=== PATIENT | female | born 1950 | race Caucasian/White ===

== ENCOUNTER 2018-06-20 17:50 | Inpatient (IN) | payer OTHER ==
[2018-06-20 18:16] LABS: ADD MAN DIFF? NO
[2018-06-20] MEDS: IV NORMAL SALINE 1000ML BAG 1,000 ML IV (18:16)
[2018-06-20 18:27] LABS: BASO # 0.1 x10^3/uL (0.0-0.2); BASO % 1 % (0-3); EOS # 0.4 x10^3/uL (0.0-0.7); EOS % 5 % (0-3); LYMPH # 2.4 x10^3/uL (1.0-4.8); LYMPH % 31 % (24-48); MEAN CORPUSCULAR HEMOGLOBIN 19 pg (25-35); MEAN CORPUSCULAR HGB CONC 30 g/dL (31-37); MEAN CORPUSCULAR VOLUME 65 fL (79-100); MONO % 12 % (0-9); NEUT % 51 % (31-73); PLATELET COUNT 411 x10^3/uL (140-400); RED BLOOD COUNT 3.38 x10^6/uL (3.50-5.40); RED CELL DISTRIBUTION WIDTH 19.5 % (11.5-14.5); WHITE BLOOD COUNT 7.9 x10^3/uL (4.0-11.0)
[2018-06-20 18:30] LABS: HEMOGLOBIN 6.6 g/dL (12.0-15.5)
[2018-06-20 18:34] LABS: ANION GAP 10 (6-14); BLOOD UREA NITROGEN 17 mg/dL (7-20); BUN/CREATININE RATIO 24 (6-20); CALCIUM 8.6 mg/dL (8.5-10.1); CARBON DIOXIDE 25 mmol/L (21-32); CHLORIDE 107 mmol/L (98-107); CREATININE 0.7 mg/dL (0.6-1.0); GLUCOSE 137 mg/dL (70-99); POTASSIUM 3.8 mmol/L (3.5-5.1); SODIUM 142 mmol/L (136-145)
[2018-06-20 18:37] LABS: ALBUMIN 3.7 g/dL (3.4-5.0); ALBUMIN/GLOBULIN RATIO 1.1 (1.0-1.7); ALK PHOS 74 U/L (46-116); ALT (SGPT) 34 U/L (14-59); AST (SGOT) 31 U/L (15-37); TOTAL BILIRUBIN 0.2 mg/dL (0.2-1.0); TOTAL PROTEIN 7.1 g/dL (6.4-8.2)
[2018-06-20 19:13] LABS: FECAL OB PT NEGATIVE (NEG); NEG OBC FOB NEG; POS OBC FOB POS
[2018-06-20] MEDS ORDERED: ONDANSETRON PF 4 MG/2 ML VIAL. IV (19:45)
[2018-06-20] MEDS ORDERED: fentaNYL PF VIAL 100 MCG/2 ML VIAL IV (19:45)
[2018-06-20 20:10] LABS: RETIC COUNT 2.5 % (0.5-2.5)
[2018-06-20 20:18] LABS: FERRITIN 5 ng/mL (8-252)
[2018-06-20 20:18] LABS: LACTATE DEHYDROGENASE 296 U/L (81-234)
[2018-06-20 20:26] LABS: ANISOCYTOSIS MOD; HYPOCHROMIA MOD; MICROCYTOSIS MOD; PLT ESTIMATE ADEQUATE (ADEQUATE); POIKILOCYTOSIS SLIGHT
[2018-06-20 20:28] LABS: OVALOCYTES FEW
[2018-06-20 22:22] LABS: % SAT IRON 3 % (15-34); IRON,SERUM 14 ug/dL (50-170)
[2018-06-20 22:39] LABS: IMMEDIATE SPIN CROSSMATCH 1 2
[2018-06-21] MEDS: IRON SUCROSE COMPLEX 500 MG in IV NORMAL SALINE 250ML 250 ML IV ×2 (01:06→09:17)
[2018-06-21] MEDS: IV NORMAL SALINE 1000ML BAG 1,000 ML IV ×2 (01:07→09:16)
[2018-06-21 01:52] LABS: ADD MAN DIFF? NO
[2018-06-21 01:58] LABS: BASO # 0.1 x10^3/uL (0.0-0.2); BASO % 1 % (0-3); EOS # 0.3 x10^3/uL (0.0-0.7); EOS % 4 % (0-3); HEMATOCRIT 26.1 % (36.0-47.0); LYMPH % 28 % (24-48); MEAN CORPUSCULAR HEMOGLOBIN 21 pg (25-35); MEAN CORPUSCULAR HGB CONC 31 g/dL (31-37); MONO # 0.9 x10^3/uL (0.0-1.1); MONO % 13 % (0-9); NEUT % 55 % (31-73); PLATELET COUNT 292 x10^3/uL (140-400); RED BLOOD COUNT 3.73 x10^6/uL (3.50-5.40); RED CELL DISTRIBUTION WIDTH 22.4 % (11.5-14.5); WHITE BLOOD COUNT 7.3 x10^3/uL (4.0-11.0)
[2018-06-21 02:05] LABS: INR 1.1 (0.8-1.1); PROTHROMBIN TIME PATIENT 13.2 SEC (11.7-14.0)
[2018-06-21 02:09] LABS: ANION GAP 7 (6-14); BLOOD UREA NITROGEN 16 mg/dL (7-20); CALCIUM 7.7 mg/dL (8.5-10.1); CARBON DIOXIDE 25 mmol/L (21-32); CHLORIDE 110 mmol/L (98-107); CREATININE 0.7 mg/dL (0.6-1.0); GLUCOSE 97 mg/dL (70-99); POTASSIUM 3.9 mmol/L (3.5-5.1); SODIUM 142 mmol/L (136-145)
[2018-06-21 05:01] LABS: MEAN CORPUSCULAR VOLUME 70 fL (79-100)
[2018-06-21 08:13] LABS: VITAMIN-B12 376 pg/mL (247-911)
[2018-06-21 08:13] LABS: FOLATE 18.64 ng/ml (3.2-20.0)
[2018-06-21] MEDS ORDERED: NON FORMULARY ITEM (Alendronate Sodium 1 TAB) PO (09:00)
[2018-06-21] MEDS ORDERED: CYCLOBENZAPRINE 10 MG TABLET. PO (09:00)
[2018-06-21] MEDS ORDERED: ONDANSETRON PF 4 MG/2 ML VIAL. IV (09:00)
[2018-06-21] MEDS: ACETAMINOPHEN 325 MG TABLET. PO (09:18)
[2018-06-21] MEDS: CITALOPRAM 20 MG TABLET. PO (09:18)
[2018-06-21] MEDS: FERROUS SULFATE 325 MG TABLET. PO (09:18)
[2018-06-21] MEDS: CHOLECALCIFEROL (VITAMIN D3) 1,000 UNIT TABLET PO (09:18)
[2018-06-21] MEDS ORDERED: SIMVASTATIN 20 MG TABLET PO (21:00)
[2018-06-21 22:17] LABS: HAPTOGLOBIN 181 mg/dL (34-200)
[2018-06-23 16:21] LABS: GLIA IGA 5 units (0-19); GLIA IGG 1 units (0-19); TRANSGLUTAMINASE IGA AB <2 U/mL (0-3); TRANSGLUTAMINASE IGG AB <2 U/mL (0-5)
== END 2018-06-21 15:35 | disposition home or self-care (01) | DRG 812 ==
LOC: ER 17:50 → 5 SOUTH 19:34
PROC: 30233N1 Transfusion of Nonautologous Red Blood Cells into Peripheral Vein, Percutaneous Approach (ICD-10-PCS; principal; 2018-06-20)
DX: D50.9 Iron deficiency anemia, unspecified (principal); M79.7 Fibromyalgia; K58.0 Irritable bowel syndrome with diarrhea; G89.29 Other chronic pain; E78.00 Pure hypercholesterolemia, unspecified; Z90.49 Acquired absence of other specified parts of digestive tract; Z88.0 Allergy status to penicillin; Z88.2 Allergy status to sulfonamides; Z90.89 Acquired absence of other organs; Z80.0 Family history of malignant neoplasm of digestive organs; Z80.3 Family history of malignant neoplasm of breast; Z82.5 Family history of asthma and other chronic lower respiratory diseases
CPT/HCPCS: 36415; 80048; 80053; 82274; 82607; 82728; 82746; 83010; 83516; 83540; 83550; 83615; 85025; 85045; 85610; 86850; 86900; 86901; 86920; 96360; 96361; 99285; 99285-25; J1756; J7030; J7050; P9016

== ENCOUNTER → 2020-09-17 | Outpatient (CLI) | payer MEDICARE ==
[2018-06-21 15:00] VITALS: BP 117/50
[~2020-09-17] MED LIST: ALEN70TA60 PO; CHOL100013 PO; CITA20TA6 PO; CYCL10TA2 PO; FERR325T14 PO; SIMV20TA18 PO
--- NOTE | 2020-09-17 17:43 | CARD ---
MR#: [id number] Date of Study: 09/17/2020 Ordering Physician: KARLY FARR, Referring Physician: KARLY FARR, Tech: Teressa Brenner APPROVED REPORT EXAM: Two-dimensional and M-mode echocardiogram with Doppler and color Doppler. Other Information Quality : AverageHR: 56bpm INDICATION Murmur RISK FACTORS Hyperlipidemia 2D DIMENSIONS RVDd3.4 (2.9-3.5cm)Left Atrium(2D)2.4 (1.6-4.0cm) IVSd0.9 (0.7-1.1cm)Aortic Root(2D)3.4 (2.0-3.7cm) LVDd4.9 (3.9-5.9cm)LVOT Diameter2.1 (1.8-2.4cm) PWd0.9 (0.7-1.1cm)LVDs2.9 (2.5-4.0cm) FS (%) 40.4 %SV78.6 ml LVEF(%)70.9 (>50%) Aortic Valve AoV Peak Leonides.151.6cm/sAoV VTI32.5cm AO Peak GR.9.2mmHgLVOT Peak Leonides.82.3cm/s LVOT VTI 17.08cmAO Mean GR.5mmHg BIANKA (VMAX)1.60bd8TKH (VTI)1.75cm2 Mitral Valve MV E Hbfvlpoi49.3cm/sMV DECEL HQIS537gm MV A Fnvwsdqp30.5cm/sMV MLU24uj E/A Ratio1.0MVA (PHT)4.26cm2 TDI E/Lateral E'7.1E/Medial E'9.4 Pulmonary Valve PV Peak Ljprvixt88.0cm/sPV Peak Grad.2mmHg Tricuspid Valve TR P. Ekccyxlj347eg/sRAP VHXWYYFB8iaKh TR Peak Gr.02dpPsUBST72dzWy Pulmonary Vein S1 Kwllqqbf72.1cm/sD2 Rttsqzqn15.4cm/s PVa vxbqyztd585qthq LEFT VENTRICLE The left ventricle is normal size. There is normal left ventricular wall thickness. The left ventricu lar systolic function is normal and the ejection fraction is within normal range. The Ejection Fracti on is 50-55%. There is normal LV segmental wall motion. Transmitral Doppler flow pattern is Grade II- pseudonormal filling dynamics. RIGHT VENTRICLE The right ventricle is mildly to moderately dilated. The right ventricle is mildly hypertrophied. The right ventricular systolic function is normal. ATRIA The left atrium is moderately dilated. The right atrium is mildly dilated. The interatrial septum is intact with no evidence for an atrial septal defect or patent foramen ovale as noted on 2-D or Dopple r imaging. AORTIC VALVE The aortic valve is thickened but opens well. Doppler and Color Flow revealed trace aortic regurgitat ion. There is no significant aortic valvular stenosis. Calculated aortic valve area is 1.67 cm2 with maximum pressure gradient of 11 mmHg and mean pressure gradient of 5 mmHg. MITRAL VALVE The mitral valve is normal in structure and function. There is no evidence of mitral valve prolapse. There is no mitral valve stenosis. Doppler and Color-flow revealed trace mitral regurgitation. TRICUSPID VALVE The tricuspid valve is normal in structure and function. Doppler and Color Flow revealed mild to mode rate tricuspid regurgitation with an estimated PAP of 34 mmHg. There is no tricuspid valve stenosis. PULMONIC VALVE The pulmonic valve is not well visualized. Doppler and Color Flow revealed trace pulmonic valvular re gurgitation. There is no pulmonic valvular stenosis. GREAT VESSELS The aortic root is normal in size. The IVC is normal in size and collapses >50% with inspiration. PERICARDIAL EFFUSION There is no evidence of significant pericardial effusion. Critical Notification Critical Value: No <Conclusion> The left ventricular systolic function is normal and the ejection fraction is within normal range. Th e Ejection Fraction is 50-55%. There is normal LV segmental wall motion. The right ventricle is mildly to moderately dilated. Doppler and Color Flow revealed mild to moderate tricuspid regurgitation with an estimated PAP of 34 mmHg. Signed by : Austin Nevarez, Electronically Approved : 09/17/2020 17:42:17
== END ==
LOC: ECHO 10:33
PROVIDERS: ATTEND Internal Medicine Cardiovascular Disease
DX: I07.1 Rheumatic tricuspid insufficiency (principal)
CPT/HCPCS: 93306

== ENCOUNTER → 2021-09-23 | Outpatient (CLI) | payer MEDICARE ==
[2018-06-21 15:00] VITALS: BP 117/50
[~2021-09-23] MED LIST changes: -ALEN70TA60 PO; +ALEN70TA71 PO; +ASPI-630 PO; +CYCL10TA19 PO; -CYCL10TA2 PO; +OXYB5TAB10 PO
--- NOTE | 2021-09-23 12:51 | PDOC1 ---
INITIAL PAIN CONSULT DATE OF SERVICE: DOS: DATE: 09/23/21 TIME: 12:45 CHIEF COMPLAINT: Chief Complaint: Low back and left lower extremity pain HISTORY OF PRESENT ILLNESS: 71-year-old female presents with history of pain low back left lower extremity for about 1 year after she stepped sideways and felt a movement in her left hip which popped and has had pain in the low back since that time radiating now into the left lower extremity into the posterior gluteus posterior thigh and occasionally in the posterior calf mostly in the hip and thigh patient report is worse with walking standing changing positions better with sitting or laying down generally wakes her from sleep though about once or twice a night especially she is laying on her left side. Patient reports is not effective bowel bladder control but affect her ability to walk although does not use any assistive devices. Patient reports the pain is across the low back in the left distribution into the left leg patient describes as constant throbbing shooting sometimes cramping aching in the back itself patient has had chiropractic treatment which is helpful as well as exercise which she is currently doing daily and continues to do this as well. Patient is taking Tylenol which does decrease the pain by about 20% or so. Patient did have a MRI scan of the lumbar spine showing bilateral spondylosis at L5 with grade 2 anterolisthesis at L5-S1 with disc desiccation at L3 445 and L5-S1 with disc unroofing at L5-S1 with mild right and moderate left foraminal neural stenosis. Patient reports no loss of motor function but significant fatigability of the left lower extremity, no bowel or bladder incontinence. PAST MEDICAL HISTORY: PMH: Cataracts, otherwise patient has been in very good health. PREVIOUS SURGERIES: Past Surgical Hx: Cataract extraction 2019 CURRENT MEDICATIONS: Current Meds: Active Scripts Medications Dose Route/Sig Max Daily Dose Days Date Category Aspirin 81 Mg Tab.chew 1 Tab PO DAILY 09/23/21 Reported Oxybutynin Chloride 5 Mg Tablet 1 Tab PO BID 09/23/21 Reported Simvastatin 20 Mg Tablet 1 Tab PO QHS 06/21/18 Reported Vitamin D (Cholecalciferol (Vitamin D3)) 1,000 Unit Capsule 1,000 Unit PO DAILY 06/21/18 Reported ALLERGIES; Allergies: Coded Allergies: Penicillins (Verified Allergy, Intermediate, HIVES, 06/20/18) Sulfa (Sulfonamide Antibiotics) (Verified Allergy, Intermediate, HIVES, ) FAMILY HISTORY: Family Hx: Heart disease in patient's mother, lung disease in patient's father SOCIAL HISTORY: Social Hx: Patient is nondrug alcohol does not smoke says any illegal illicit recreational drugs is single lives locally in [facility] and is currently retired. REVIEW OF SYSTEMS: ROS: Positive for those items mentioned in history of present illness, all systems are reviewed, otherwise negative ,and are complete full and well-documented on patient's chart. PHYSICAL EXAM: VS: Blood pressure is 121/71 pulse 70 respirations 18 temperature 98.3 F height 5 feet 5 inches weight is 147 pounds PE: PHYSICAL EXAMINATION: GENERAL: The patient is awake, alert, oriented, appropriate, very pleasant in demeanor HEENT: Shows normocephalic, atraumatic. Extraocular movements are intact and symmetrical. Oral cavity: Mucous membranes moist and pink. NECK: Shows anterior throat supple without palpable lymphadenopathy noted. Swallow reflex symmetrical. CHEST: Shows normal on inspection. Breath sounds are clear bilaterally, distant but no rales rhonchi wheezes auscultated. HEART: Shows S1, S2 clear. No murmurs auscultated. ABDOMEN: Soft, nontender, nondistended. No palpable organomegaly is noted. No rebound or guarding demonstrated. BACK: Shows spine grossly in the midline. Normal-appearing cervical lordotic curvature. There is wildly increased thoracic kyphosis, some flattening of the lumbar lordotic curvature. Lumbar paraspinous muscles show symmetrical on inspection, on palpation shows some moderate tenderness diffusely throughout the upper, middle and lower distribution of the paraspinous muscles bilaterally and also into the lower thoracic paraspinous musculature, firm and tender, but without specific trigger points, without radiation of pain. The patient has good rotational motion of the lumbar spine, both laterally as well as extension and flexion without significant difficulty. No tenderness over the spinous processes, sacrum or sacroiliac regions. EXTREMITIES: Lower extremities show deep tendon reflexes 2+ in the patellar and tendo calcaneus tendons. Motor exam is 5 on a scale of 5 with right dorsiflexion, extension, quadriceps and hamstring flexion and []/5 on the left. Peripheral pulses are 1+ posterior tibial. No peripheral edema is noted bilaterally. Lower extremities are warm and dry to touch, equal in color and appearance. Straight leg raise noted to be positive on the left at approximately 45 degrees, decreased with knee flexion, right side is negative. Gaenslen's and Neto's maneuvers are negative bilaterally. The patient is able to stand, stand on her toes that significant difficulty and no loss of balance, patient is walking with a slight favoring gait does appear to favor the left lower extremity mildly but not use any assistive devices to ambulate such as canes or walkers. SKIN: Shows warm and dry, good turgor. No edema. No sores, rashes or bruising throughout. IMPRESSION: Impression: 71-year-old female with approximate 1 year history low back left lower extremity pain in a radicular fashion following an L5-S1 dermatomal distribution. MRI scan lumbar spine as noted History of cataracts Plan: Options were discussed with patient occluding serve medical management continued physical therapies and interventional techniques. Patient has done physical therapy chiropractic treatment is currently doing exercise on her own, she would like to pursue the ventral techniques. We discussed a lumbar epidural steroid injection description as well as anatomical models to describe the procedure. Patient will wait for preauthorization with insurance provider, once obtained we will have her return for a translaminar approach L5-S1 level lumbar epidural steroid injection at that time with fluoroscopic guidance. In the meantime, patient continue with stretching strength exercises on her own as well as oral analgesics as currently. AUNDREA LUCIO MD Sep 23, 2021 12:50
== END | disposition home or self-care (01) ==
LOC: PNCL 11:03
PROVIDERS: ATTEND Anesthesiology
DX: M79.605 Pain in left leg (principal); M54.50 Low back pain, unspecified; E78.00 Pure hypercholesterolemia, unspecified; E11.9 Type 2 diabetes mellitus without complications; Z79.82 Long term (current) use of aspirin; Z79.899 Other long term (current) drug therapy; Z98.890 Other specified postprocedural states; Z88.0 Allergy status to penicillin; Z88.2 Allergy status to sulfonamides
CPT/HCPCS: G0463

== ENCOUNTER → 2021-10-06 | Outpatient (CLI) | payer MEDICARE ==
[2018-06-21 15:00] VITALS: BP 117/50
[~2021-10-06] MED LIST changes: +IOHEXOL 180 MG/ML 10 ML VIAL. ONE; +methylPREDNISolone ACETATE 40 MG/ML VIAL. ONE; +methylPREDNISolone ACETATE 80 MG/ML VIAL. ONE
--- NOTE | 2021-10-06 10:50 | PDOC ---
Progress Note - Pain Clinic Date of Service: DOS: DATE: 10/06/21 TIME: 10:47 Diagnosis: Dx: Lumbar radiculopathy with lumbar degenerative disease and lumbar spinal stenosis History or Present Illness: HPI: 71-year-old female returns for follow-up status post initial evaluation with complaints of low back and left lower extremity pain posterior gluteus posterior thigh posterior calf and across the low back patient reports is now also on the right side but only intermittently patient reports initially was only on the left but now new finding of right-sided pain with some walking standing especially getting up from a chair patient reports it is better with sitting or laying down the Medrol pack that we had prescribed for her last time helped significantly about 90% but only lasted about 5 days and the pain began to return fairly quickly patient rates her pain now as an 8 on scale 10 is worse over the past week 5 on average 3 its least is a 5 today patient scribes aching and dull can be constant with activity and again new pain on the right side with getting up from a chair. Patient reports no bowel or bladder incontinence and no loss of motor function. Patient complains of significant fatigability still in the left lower extremity. Physical Exam: VS: Blood pressure is 124/64 pulse is 50 respirations 18 temperature 99.2 F height is 5 feet 5 inches weight 146 pounds PE: PHYSICAL EXAMINATION: GENERAL: The patient is awake, alert, oriented, appropriate, very pleasant in demeanor HEENT: Shows normocephalic, atraumatic. Extraocular movements are intact and symmetrical. Oral cavity: Mucous membranes moist and pink. NECK: Shows anterior throat supple without palpable lymphadenopathy noted. Swallow reflex is symmetrical. CHEST: Shows normal on inspection. Breath sounds are clear bilaterally, no rales or rhonchi auscultated. HEART: Shows S1, S2 clear. No murmurs auscultated. ABDOMEN: Soft, nontender, nondistended. No palpable organomegaly is noted. BACK: Shows spine grossly in the midline. Normal-appearing cervical lordotic curvature. There is slightly increased thoracic kyphosis, some minor flattening of the lumbar lordotic curvature. Lumbar paraspinous muscles show symmetrical on inspection, on palpation shows some moderate tenderness diffusely throughout the upper, middle and lower distribution of the paraspinous muscles, but without specific trigger points, without radiation of pain. The patient has good rotational motion of the lumbar spine, both laterally as well as extension and flexion without significant difficulty. EXTREMITIES: Lower extremities show deep tendon reflexes 2+ in the patellar and tendo calcaneus tendons. Motor exam is 5 on a scale of 5 with right dorsiflexion, extension, quadriceps and hamstring flexion and 4/5 on the left. Peripheral pulses are 1+ posterior tibial. No peripheral edema is noted bilaterally. Lower extremities are warm and dry to touch, equal in color and appearance. SKIN: Shows warm and dry, good turgor. No edema. No sores, rashes or bruising throughout. Procedure: Procedure: Options were discussed with the patient. Patient's old chart was reviewed as her current medication regimen updated current review of systems updated today as well. We will proceed with a lumbar epidural steroid injection today with fluoroscopic guidance. Risks were discussed including but not limited to: Bleeding, infection, possibility of epidural hematoma and subsequent neurological compromise, dural puncture, headaches, spinal cord and/or nerve damage, side effects of steroid medication, and poor results regarding pain control. Patient understands and wished to proceed. Patient will return to the clinic in approximate 2 weeks for follow-up, was counseled return appointment, activity level, and side effects beware of. Medication Injected: Med Injected: Procedure is lumbar epidural steroid injection under local anesthetic using sterile prep and drape at the L5-S1 level using C-arm fluoroscopic guidance in both AP and lateral views medications injected is 120 mg Depo-Medrol +10mL preservative-free normal saline and 2 mL contrast- condition at discharge is stable patient tolerated procedure well had no complications. Condition at Discharge: Condition at Discharge: Condition at discharge stable, patient tolerated procedure well and had no complications. AUNDREA LUCIO MD Oct 06, 2021 10:50
--- NOTE | 2021-10-06 10:50 | PDOC4 ---
Procedure Note: ICD 10 Code: ICD 10 Code: M54.17 M4 8.07 M51.87 Procedure Note: Patient was consented for lumbar epidural steroid injection with fluoroscopic guidance. Risks were discussed including but not limited to: Bleeding, infection, possibility of epidural hematoma and subsequent neurological compromise, dural puncture, headaches, spinal cord and/or nerve damage, side effects of steroid medication, and poor results regarding pain control. Patient understands and wished to proceed. Procedure is lumbar epidural steroid injection under local anesthetic using nic rile prep and drape at the L5-S1 level using C-arm fluoroscopic guidance in both AP and lateral views medications injected is 120 mg Depo-Medrol +10mL preservative-free normal saline and 2 mL contrast- condition at discharge is stable patient tolerated procedure well had no complications. AUNDREA LUCIO MD Oct 06, 2021 10:50
== END | disposition home or self-care (01) ==
LOC: PNCL 10:01
PROVIDERS: ATTEND Anesthesiology
DX: M51.16 Intervertebral disc disorders with radiculopathy, lumbar region (principal); M48.061 Spinal stenosis, lumbar region without neurogenic claudication; E78.00 Pure hypercholesterolemia, unspecified; Z79.82 Long term (current) use of aspirin; Z79.899 Other long term (current) drug therapy; Z88.0 Allergy status to penicillin; Z88.2 Allergy status to sulfonamides
CPT/HCPCS: 62323; J1030; J1040; Q9965

== ENCOUNTER → 2021-10-20 | Outpatient (CLI) | payer MEDICARE ==
[2018-06-21 15:00] VITALS: BP 117/50
[~2021-10-20] MED LIST changes: -IOHEXOL 180 MG/ML 10 ML VIAL. ONE; -methylPREDNISolone ACETATE 40 MG/ML VIAL. ONE; -methylPREDNISolone ACETATE 80 MG/ML VIAL. ONE
--- NOTE | 2021-10-20 11:21 | PDOC ---
Progress Note - Pain Clinic Date of Service: DOS: DATE: 10/20/21 TIME: 11:17 Diagnosis: Dx: Lumbar radiculopathy with lumbar degenerative disease and lumbar spinal stenosis History or Present Illness: HPI: 71-year-old female returns for follow-up status post lumbar epidural steroid injection. Patient reports about 75% improvement and is currently still helping patient reports doing much better she is increase activity distance walking doing household activities travel with greater ease and comfort sleeping much better at night does not awaken her from sleep she is very pleased with her progress. Patient reports still some pain in the low back into the left lower extremity in the posterior gluteus posterior thigh posterior calf but only very minimal patient reports is doing much better she is very pleased rates her pain is a 7 on scale 10 is worse over the past week for an average 1 its least and is a 4 today. She reports her back "feels tired" described as aching and dull in the back on and off in intensity and shooting in the leg but again much improved and she is doing quite a bit more activity with greater ease and comfort no new bowel or bladder incontinence. Patient continues with stretching strength exercises daily and also daily walking at least up to 1/4 mile to a half a mile if the weather permits. Patient is occasionally taking Tylenol but does not need much of it since her last injection. Physical Exam: VS: Blood pressure is 131/75 pulse 60 respirations 18 temperature 98.1 F weight is 147 pounds PE: PHYSICAL EXAMINATION: GENERAL: The patient is awake, alert, oriented, appropriate, very pleasant and demeanor HEENT: Shows normocephalic, atraumatic. Extraocular movements are intact and symmetrical. Oral cavity: Mucous membranes moist and pink. NECK: Shows anterior throat supple without palpable lymphadenopathy noted. Swallow reflex symmetrical. CHEST: Shows normal on inspection. Breath sounds are clear bilaterally, no rales or rhonchi. HEART: Shows S1, S2 clear. No murmurs auscultated. ABDOMEN: Soft, nontender, nondistended. No palpable organomegaly is noted. BACK: Shows spine grossly in the midline. Normal-appearing cervical lordotic curvature. There is slightly increased thoracic kyphosis, some minor flattening of the lumbar lordotic curvature. Lumbar paraspinous muscles show symmetrical on inspection, on palpation shows some moderate tenderness diffusely throughout the upper, middle and lower distribution of the paraspinous muscles, but without specific trigger points, without radiation of pain. The patient has good rotational motion of the lumbar spine, both laterally as well as extension and flexion without significant difficulty. EXTREMITIES: Lower extremities show deep tendon reflexes 2+ in the patellar and tendo calcaneus tendons. Motor exam is 5 on a scale of 5 with right dorsiflexion, extension, quadriceps and hamstring flexion and 4/5 on the left. Peripheral pulses are 1+ posterior tibial. No peripheral edema is noted bilaterally. Lower extremities are warm and dry to touch, equal in color and appearance. SKIN: Shows warm and dry, good turgor. No edema. No sores, rashes or bruising throughout. Procedure: Procedure: Options were discussed with patient. Patient chart reviews her current medication regimen updated current review of systems updated today as well. We will have patient preauthorize for additional lumbar epidural steroid injection she still has clinical radiculopathy in an L5-S1 dermatome distribution on the left although significantly improved with 75% improvement after the last injection. We will continue with stretching strength exercises at home as well as oral analgesics as currently. Once approved we will have patient return for translaminar approach L5-S1 level lumbar epidural steroid injection with fluoroscopic guidance. Medication Injected: Med Injected: None Condition at Discharge: Condition at Discharge: Condition at discharge is stable. AUNDREA LUCIO MD Oct 20, 2021 11:21
== END | disposition home or self-care (01) ==
LOC: PNCL 10:30
PROVIDERS: ATTEND Anesthesiology
DX: M51.16 Intervertebral disc disorders with radiculopathy, lumbar region (principal); M48.061 Spinal stenosis, lumbar region without neurogenic claudication; E78.00 Pure hypercholesterolemia, unspecified; Z79.899 Other long term (current) drug therapy; Z98.890 Other specified postprocedural states; Z79.82 Long term (current) use of aspirin; Z88.0 Allergy status to penicillin; Z88.2 Allergy status to sulfonamides
CPT/HCPCS: 62323; 99212; G0463

== ENCOUNTER → 2021-11-11 | Outpatient (CLI) | payer MEDICARE ==
[2018-06-21 15:00] VITALS: BP 117/50
[~2021-11-11] MED LIST changes: +IOHEXOL 180 MG/ML 10 ML VIAL. ONE; +methylPREDNISolone ACETATE 40 MG/ML VIAL. ONE; +methylPREDNISolone ACETATE 80 MG/ML VIAL. ONE
--- NOTE | 2021-11-11 11:17 | PDOC ---
Progress Note - Pain Clinic Date of Service: DOS: DATE: 11/11/21 TIME: 11:13 Diagnosis: Dx: Lumbar radiculopathy with lumbar degenerative disease and lumbar spinal stenosis History or Present Illness: HPI: 71-year-old female returns for follow-up status post lumbar epidural steroid injection x1 patient reports she did very well about 35% improvement but the pain returning in the low back left lower extremity posterior gluteus posterior thigh posterior calf at times worse in the back and thigh however also has pain now on the right side which is new for her as she is almost always had occasionally on the right side now in the left side to some extent as well but not traveling as far into the lower extremity and hip as the left side as patient reports this is come up just over the past week or so not the result of any specific injury or accident that she is aware patient rates as a 10 on scale 10 is worst 8 on average 3 to [place] is a 5 today patient reports aching and dull burning and constant in the low back and now in both lower extremities. Patient reports while it is better it is still significant in the right side now is more noticeable since the last week patient reports is better with sitting or laying down generally does not awaken her from sleep at night patient reports when she is up on her feet walking she must sit for about 15 to 20 minutes to get the pain to resolve before she can get up and get going once again. Patient reports no motor deficits but significant fatigability of the lower extremities. Physical Exam: VS: Blood pressure is 133/55 pulse 68 respirations 18 temperature 99.1 F height 5 feet 5 inches weight 148 pounds PE: PHYSICAL EXAMINATION: GENERAL: The patient is awake, alert, oriented, appropriate, very pleasant in demeanor HEENT: Shows normocephalic, atraumatic. Extraocular movements are intact and symmetrical. Oral cavity: Mucous membranes moist and pink. NECK: Shows anterior throat supple without palpable lymphadenopathy noted. Swallow reflex symmetrical. CHEST: Shows normal on inspection. Breath sounds are clear bilaterally. HEART: Shows S1, S2 clear. No murmurs auscultated. ABDOMEN: Soft, nontender, nondistended. No palpable organomegaly is noted. BACK: Shows spine grossly in the midline. Normal-appearing cervical lordotic curvature. There is slightly increased thoracic kyphosis, some minor flattening of the lumbar lordotic curvature. Lumbar paraspinous muscles show symmetrical on inspection, on palpation shows some moderate tenderness diffusely throughout the upper, middle and lower distribution of the paraspinous muscles without specific trigger points, without radiation of pain. The patient has good rotational motion of the lumbar spine, both laterally as well as extension and flexion without significant difficulty. EXTREMITIES: Lower extremities show deep tendon reflexes 2+ in the patellar and tendo calcaneus tendons. Motor exam is 5 on a scale of 5 with right dorsiflexion, extension, quadriceps and hamstring flexion and 4/5 on the left. Peripheral pulses are 1+ posterior tibial. No peripheral edema is noted bilaterally. Lower extremities are warm and dry. SKIN: Shows warm and dry, good turgor. No edema. No sores, rashes or bruising throughout. Procedure: Procedure: Options were discussed with the patient. Patient's old chart was reviewed as her current medication regimen updated current review of systems updated today as well. We will proceed with a lumbar epidural steroid injection today with fluoroscopic guidance. Risks were discussed including but not limited to: Bleeding, infection, possibility of epidural hematoma and subsequent neurological compromise, dural puncture, headaches, spinal cord and/or nerve damage, side effects of steroid medication, and poor results regarding pain control. Patient understands and wished to proceed. Patient will return [facility] in approximate 2 weeks for follow-up, was counseled as to return appointment, activity level, and side effect to be aware of. Medication Injected: Med Injected: Procedure is lumbar epidural steroid injection under local anesthetic using sterile prep and drape at the L5-S1 level using C-arm fluoroscopic guidance in both AP and lateral views medications injected is 120 mg Depo-Medrol +10mL preservative-free normal saline and 2 mL contrast- condition at discharge is stable patient tolerated procedure well had no complications. Condition at Discharge: Condition at Discharge: Condition at discharge is stable, patient tolerated the procedure well and had no complications. AUNDREA LUCIO MD Nov 11, 2021 11:17
--- NOTE | 2021-11-11 11:17 | PDOC4 ---
Procedure Note: ICD 10 Code: ICD 10 Code: M54.17 M51.87 M4 8.07 Procedure Note: Patient was consented for lumbar epidural steroid injection fluoroscopic guidance. Risks were discussed including but not limited to: Bleeding, infection, possibility of epidural hematoma and subsequent neurological compromise, dural puncture, headaches, spinal cord and/or nerve damage, side effects of steroid medication, and poor results regarding pain control. Patient understands and wished to proceed. Procedure is lumbar epidural steroid injection under local anesthetic using sterile prep and drape at the L5-S1 level using C-arm fluoroscopic guidance in both AP and lateral views medications injected is 120 mg Depo-Medrol +10mL preservative-free normal saline and 2 mL contrast- condition at discharge is stable patient tolerated procedure well had no complications. AUNDREA LUCIO MD Nov 11, 2021 11:17
== END | disposition home or self-care (01) ==
LOC: PNCL 10:23
PROVIDERS: ATTEND Anesthesiology
DX: M51.16 Intervertebral disc disorders with radiculopathy, lumbar region (principal); M48.061 Spinal stenosis, lumbar region without neurogenic claudication; E78.00 Pure hypercholesterolemia, unspecified; Z79.82 Long term (current) use of aspirin; Z79.899 Other long term (current) drug therapy; Z98.890 Other specified postprocedural states; Z88.0 Allergy status to penicillin; Z88.2 Allergy status to sulfonamides
CPT/HCPCS: 62323; J1030; J1040; Q9965

== ENCOUNTER → 2021-12-22 | Outpatient (CLI) | payer MEDICARE ==
[2018-06-21 15:00] VITALS: BP 117/50
[~2021-12-22] MED LIST changes: -IOHEXOL 180 MG/ML 10 ML VIAL. ONE; -methylPREDNISolone ACETATE 40 MG/ML VIAL. ONE; -methylPREDNISolone ACETATE 80 MG/ML VIAL. ONE
--- NOTE | 2021-12-22 11:57 | PDOC ---
Progress Note - Pain Clinic Date of Service: DOS: DATE: 12/22/21 TIME: 11:52 Diagnosis: Dx: Lumbar radiculopathy with lumbar degenerative disc disease and lumbar spinal stenosis History or Present Illness: HPI: 71-year-old female returns status post lumbar epidural steroid injection November 11, 2021 patient reports 100% improvement for the first 3 weeks pain to begin to come back over the past week or so and low back and the left lower extremity. Patient reports initially is doing much better distance walking much greater duration and comfort with exercise standing walking she been walking her dog 4 times a day with good comfort until the last week or so patient reports he is doing household activities travel with greater ease and comfort sleeping better at night currently is not awaken her from sleep patient does report the pain is beginning to return however it is noticeable in the low back left lower extremity posterior gluteus posterior thigh and calf with extended walking but only for greater than about 20 minutes patient reports is a 6 on a scale of 10 at its worst over the past week for an average steroids least prior to that though is 1 or 2 it is worse now jumped up to a 6 at its worst in the low back and the left leg patient report is aching and dull cramping at times on and off in intensity again better with sitting rest. Patient reports that she is not been using any oral analgesics since her last injection and again her activity level is increased significantly especially with extended periods of walking. Patient reports no bowel or bladder incontinence. Physical Exam: VS: Blood pressure is 139/79 pulse 55 respirations 18 temperature 98.2 F height 5 feet 5 inches weight is 150 pounds PE: PHYSICAL EXAMINATION: GENERAL: The patient is awake, alert, oriented, appropriate, very pleasant in demeanor HEENT: Shows normocephalic, and atraumatic. Extraocular movements are intact and symmetrical. Oral cavity: Mucous membranes moist and pink. NECK: Shows anterior throat supple without palpable lymphadenopathy noted. Swallow reflex symmetrical. CHEST: Shows normal on inspection. Breath sounds are clear bilaterally, distant but no rales or rhonchi auscultated. HEART: Shows S1, S2 clear. No murmurs auscultated. ABDOMEN: Soft, nontender, nondistended. No palpable organomegaly is noted. No rebound or guarding demonstrated. BACK: Shows spine grossly in the midline. Normal-appearing cervical lordotic curvature. There is mildly increased thoracic kyphosis, some flattening of the lumbar lordotic curvature. Lumbar paraspinous muscles show symmetrical on inspection, with palpation shows some moderate tenderness diffusely throughout the upper, middle and lower distribution of the paraspinous muscles without specific trigger points, without radiation of pain. The patient has good rotational motion of the lumbar spine, both laterally as well as extension and flexion without significant difficulty. EXTREMITIES: Lower extremities show deep tendon reflexes 2+ in the patellar and tendo calcaneus tendons. Motor exam is 5 on a scale of 5 with right dorsiflexion, extension, quadriceps and hamstring flexion and 4/5 on the left. Peripheral pulses are 1+ posterior tibial. No peripheral edema is noted bilaterally. Lower extremities are warm and dry to touch, equal in color and appearance. Straight leg raise is mildly positive on the left only at 45 degr ees but relieved with knee flexion, right side is negative. SKIN: Shows warm and dry, good turgor. No edema. No sores, rashes or bruising throughout. Procedure: Procedure: Options were discussed with the patient. Patient's old chart was reviewed as her current medication regimen updated current review of systems updated today as well. We will preauthorize patient for lumbar epidural steroid injection she did very well after last injection with near undersign improvement for over a month with the pain returning now in a radicular fashion in L5-S1 dermatomal distribution in the left lower extremity. Once approved, patient will return for translaminar approach L5-S1 lumbar epidural steroid injection with fluoroscopic guidance. In the meantime, patient will continue with stretching strengthening exercises walking daily as tolerated as well as oral analgesics if necessary. Medication Injected: Med Injected: None Condition at Discharge: Condition at Discharge: Condition at discharge is stable. AUNDREA LUCIO MD Dec 22, 2021 11:57
== END | disposition home or self-care (01) ==
LOC: PNCL 11:05
PROVIDERS: ATTEND Anesthesiology
DX: M51.16 Intervertebral disc disorders with radiculopathy, lumbar region (principal); M48.061 Spinal stenosis, lumbar region without neurogenic claudication; E78.00 Pure hypercholesterolemia, unspecified; Z79.82 Long term (current) use of aspirin; Z79.899 Other long term (current) drug therapy; Z98.890 Other specified postprocedural states; Z88.0 Allergy status to penicillin; Z88.2 Allergy status to sulfonamides
CPT/HCPCS: 99212; G0463

== ENCOUNTER → 2021-12-31 | Outpatient (CLI) | payer MEDICARE ==
[2018-06-21 15:00] VITALS: BP 117/50
[~2021-12-31] MED LIST changes: +IOHEXOL 180 MG/ML 10 ML VIAL. ONE; +METH-572 PO; +methylPREDNISolone ACETATE 80 MG/ML VIAL. ONE
--- NOTE | 2021-12-31 11:48 | PDOC ---
Progress Note - Pain Clinic Date of Service: DOS: DATE: 12/31/21 TIME: 11:43 Diagnosis: Dx: Lumbar radiculopathy with lumbar degenerative disc disease lumbar spinal stenosis History or Present Illness: HPI: 71-year-old female returns for follow-up status post lumbar epidural steroid injection most recently in November 11, 2021. Patient very well with near 80% improvement in the low back and left greater than right lower extremities patient reports that the pain is returning but only to a moderate extent in the low back and left lower extremity posterior gluteus posterior thigh posterior calf rated as 3 on scale 10 is worst over the past 1 on average 0 its least is a 1 today. Patient reports doing much better she is very encouraged by her progress thus far reports no new motor or sensory deficits no bowel or bladder incontinence. Patient is increased distance walking doing household activities with greater ease and comfort using less [id number] medication as well. Patient reports no deficits but significant fatigability with the left lower extremity with extended standing and walking but greater than about 30 minutes. Patient reports he is sleeping better generally is not awakening her from sleep at night currently. Physical Exam: VS: Blood pressure is 156/79 pulse 66 respirations 18 temperature is 98.3 F height is 5 feet 5 inches weight 148 pounds. PE: PHYSICAL EXAMINATION: GENERAL: The patient is awake, alert, oriented, appropriate, very pleasant in demeanor HEENT: Shows normocephalic, atraumatic. Extraocular movements are intact and symmetrical. Oral cavity: Mucous membranes moist and pink. NECK: Shows anterior throat supple without palpable lymphadenopathy noted. Swallow reflex symmetrical. CHEST: Shows normal on inspection. Breath sounds are clear bilaterally. HEART: Shows S1, S2 clear. No murmurs auscultated. ABDOMEN: Soft, nontender, nondistended. No palpable organomegaly is noted. BACK: Shows spine grossly in the midline. Normal-appearing cervical lordotic curvature. There is some increased thoracic kyphosis, some mild flattening of the lumbar lordotic curvature. Lumbar paraspinous muscles show symmetrical on inspection, on palpation shows some moderate tenderness diffusely throughout the upper, middle and lower distribution of the paraspinous muscles, but without specific trigger points, without radiation of pain. The patient has good rotational motion of the lumbar spine, both laterally as well as extension and flexion without significant difficulty. No tenderness over the spinous processes, sacrum or sacroiliac regions. EXTREMITIES: Lower extremities show deep tendon reflexes 2+ in the patellar and tendo calcaneus tendons. Motor exam is 5 on a scale of 5 with right dorsiflexion, extension, quadriceps and hamstring flexion and 4/5 on the left. Peripheral pulses are 1+ posterior tibial. No peripheral edema is noted bi laterally. Lower extremities are warm and dry. SKIN: Shows warm and dry, good turgor. No edema. No sores, rashes or bruising throughout. Procedure: Procedure: Options were discussed with the patient. Patient's old chart was reviewed as her current medication regimen updated current review of systems updated today as well. We will proceed with a lumbar epidural steroid injection today with fluoroscopic guidance. Risks were discussed including but not limited to: Bleeding, infection, possibility of epidural hematoma and subsequent neurological compromise, dural puncture, headaches, spinal cord and/or nerve damage, side effects of steroid medication, and poor results regarding pain control. Patient understands and wished to proceed. Patient will return to clinic in approximately 2 weeks for follow-up, was counseled as to return appointment, activity level, and side effect to be aware of. Medication Injected: Med Injected: Procedure is lumbar epidural steroid injection under local anesthetic using sterile prep and drape at the L5-S1 level using C-arm fluoroscopic guidance in both AP and lateral views medications injected is 120 mg Depo-Medrol +10mL preservative-free normal saline and 2 mL contrast- condition at discharge is stable patient tolerated procedure well had no complications. Condition at Discharge: Condition at Discharge: Condition at discharge stable, paced tolerated the procedure well and had no co mplications. AUNDREA LUCIO MD Dec 31, 2021 11:48
--- NOTE | 2021-12-31 11:49 | PDOC4 ---
Procedure Note: ICD 10 Code: ICD 10 Code: M54.17 M51.87 M4 8.07 Procedure Note: Patient was consented for lumbar epidural steroid injection with fluoroscopic guidance. Risks were discussed including but not limited to: Bleeding, infection, possibility of epidural hematoma and subsequent neurological compromise, dural puncture, headaches, spinal cord and/or nerve damage, side effects of steroid medication, and poor results regarding pain control. Patient understands and wished to proceed. Procedure is lumbar epidural steroid injection under local anesthetic using nic rile prep and drape at the L5-S1 level using C-arm fluoroscopic guidance in both AP and lateral views medications injected is 120 mg Depo-Medrol +10mL preservative-free normal saline and 2 mL contrast- condition at discharge is stable patient tolerated procedure well had no complications. AUNDREA LUCIO MD Dec 31, 2021 11:49
--- NOTE | 2021-12-31 12:53 | PDOC ---
Progress Note - Pain Clinic Date of Service: DOS: DATE: 12/31/21 TIME: 12:45 Diagnosis: Dx: Right shoulder joint pain with osteoarthritis Left knee joint pain with osteoarthritis Myofascial pain Lumbar radiculopathy with lumbar degenerative disease and lumbar herniated disc Cervical radiculopathy with cervical degenerative disc disease History or Present Illness: HPI: 47-year-old female returns for follow-up status post medication management with methadone and oxycodone. Patient reports he is doing fairly well with this with about a 50 to 60% improvement with the medications and without any significant side effects. Patient reports her chief complaint today however is right shoulder pain which been getting much worse over the past month or so pain around the collarbone in the right shoulder anteriorly posteriorly laterally superiorly reports it never stops actually sleep in one position in the neck causes pain in the back and the lower body patient reports is a 10 on scale 10 is worst 10 on average at night to [place] is a 9 today. Patient reports no injury to the shoulder but significant pain with rotation of motion as well as weightbearing lifting repetitive motions with the right arm and cannot lift her arm greater than approximately 90 degrees to the side with abduction and cannot reach above her head at all and she finds herself using her left arm more and is causing some significant soreness in the left arm as she is compensating for the right arm. Patient reports also pain in the back and low back into the lower extremities as well but fairly well managed with the medication regimen of the methadone and oxycodone. Patient also using Voltaren gel on the shoulder as well as the base the neck and her bilateral knees. Patient has had appropriate K tracks report as well as appropriate urinalyses to date. Physical Exam: VS: Blood pressure is 126/78 pulse 80 respirations 20 temperature is 98.2 F weight is 200 pounds PE: PHYSICAL EXAMINATION: GENERAL: The patient is awake, alert, oriented, appropriate, very pleasant in demeanor HEENT: Shows normocephalic, atraumatic. Extraocular movements are intact and symmetrical. Patient wearing eyeglasses. Oral cavity: Mucous membranes moist and pink. Dentition is intact. NECK: Shows anterior throat supple without palpable lymphadenopathy noted. Swallow reflex symmetrical. CHEST: Shows normal on inspection. Breath sounds are clear bilaterally, distant but no rales or rhonchi. HEART: Shows S1, S2 clear. No murmurs auscultated. ABDOMEN: Soft, nontender, nondistended. No palpable organomegaly is noted. BACK: Shows spine grossly in the midline. Normal-appearing cervical lordotic curvature. Cervical paraspinous muscles show symmetrical with inspection of palpation some very firm tender musculature in the middle and inferior aspect the cervical paraspinous muscle are also the superior medial trapezius bi laterally. There is moderately increased thoracic kyphosis, some flattening of the lumbar lordotic curvature. Lumbar paraspinous muscles show symmetrical on inspection, on palpation shows some moderate tenderness diffusely throughout the upper, middle and lower distribution of the paraspinous muscles, but without specific trigger points, without radiation of pain. The patient has good rotational motion of the lumbar spine, both laterally as well as extension and flexion without significant difficulty. No tenderness over the spinous processes, sacrum or sacroiliac regions. EXTREMITIES: Lower extremities show deep tendon reflexes 1+ in the patellar and tendo calcaneus tendons. Motor exam is 4 on a scale of 5 with right dorsiflexion, extension, quadriceps and hamstring flexion and 4/5 on the left. Peripheral pulses are 1+ posterior tibial. No peripheral edema is noted bilaterally. Lower extremities are warm and dry to touch, equal in color and appearance. Upper extremity show deep tendon reflexes 2+ in the bicep tricep tendons motor exam strong with sustainability executive director strength rated 5 out of 5 bicep tricep flexion 4-5 on the right and 5 out of 5 on the left. Patient's right shoulder shows significant tenderness with palpation of the acromioclavicular joint as well as the anterior aspect of the glenohumeral joint some posteriorly as well with moderate palpation patient shows limited rotation of motion in abduction at approximately 75 to 80 degrees abduction with significant pain in the lateral deltoid region as well as the superior aspect of the shoulder and acromioclavicular region. Left side shows full rotation motion without difficulty. SKIN: Shows warm and dry, good turgor. No edema. No sores, rashes or bruising throughout. Procedure: Procedure: Options were discussed with the patient. Patient's old chart was viewed as her current medication regimen updated current review of systems updated today as well. We will proceed with a right intra-articular shoulder joint injection today with fluoroscopic guidance. Risks were discussed including but not limited to bleeding infection possibility of intravascular injection and sequelae, spread local acetic numbness, side effects of steroid medication, exposure fluoroscopy, and poor results regarding pain control. Patient understands wishes to proceed. We will refill patient's methadone as well as oxycodone which will be electronically prescribed for 30-day prescription. Again, patient has had appropriate K tracks reporting as well as appropriate urinalyses to date. Patient to follow-up in approximately 30 days as scheduled. Medication Injected: Med Injected: Patient supine position under sterile prep and drape using C-arm fluoroscopic guidance patient's right shoulder was visualized and using 25-gauge needle 1% lidocaine was used to topically anesthetized area over the glenohumeral joint on the right. Using a 22-gauge Quincke needle with stylette the joint was entered under direct fluoroscopic visualization without difficulty stylet was removed at this time 2 cc of contrast was injected with good intra-articular spread in the shoulder joint without uptake. At this time 3 cc of 0.25% bupivacaine and 80 mg Depo-Medrol was then injected into the joint. Needle was removed and sterile bandage was applied. Patient tolerated the procedure well and had no complications. Condition at Discharge: Condition at Discharge: Condition at discharge stable, patient tolerated the procedure well and had no complications. AUNDREA LUCIO MD Dec 31, 2021 12:53
--- NOTE | 2021-12-31 12:54 | PDOC4 ---
Procedure Note: ICD 10 Code: ICD 10 Code: M2 5.511 M1 9.011 Procedure Note: Patient was consented for right intra-articular shoulder joint traction today with fluoroscopic guidance. Risks were discussed including but not limited to bleeding infection possibly intravascular ejection sequelae spread local acetic numbness side effects steroid medication exposure fluoroscopy and poor results regarding pain control. Patient understands wished to proceed. Patient supine position under sterile prep and drape using C-arm fluoroscopic guidance patient's right shoulder was visualized and using 25-gauge needle 1% lidocaine was used to topically anesthetized area over the glenohumeral joint on the right. Using a 22-gauge Quincke needle with stylette the joint was entered under direct fluoroscopic visualization without difficulty stylet was removed at this time 2 cc of contrast was injected with good intra-articular spread in the shoulder joint without uptake. At this time 3 cc of 0.25% bupivacaine and 80 mg Depo-Medrol was then injected into the joint. Needle was removed and sterile bandage was applied. Patient tolerated the procedure well and had no complications. AUNDREA LUCIO MD Dec 31, 2021 12:54
--- NOTE | 2021-12-31 13:10 | FMN ---
PT PROBLEMS Addendum for patient's documentation, progress note and procedure note dictated on incorrect patient should not be for Edith Alfaro, also electronic prescription of methadone sent for wrong patient also not intended to be on chart for AUNDREA Giron MD Dec 31, 2021 13:10
== END | disposition home or self-care (01) ==
LOC: PNCL 10:16
PROVIDERS: ATTEND Anesthesiology
DX: M51.16 Intervertebral disc disorders with radiculopathy, lumbar region (principal); M48.061 Spinal stenosis, lumbar region without neurogenic claudication; M19.011 Primary osteoarthritis, right shoulder; M17.11 Unilateral primary osteoarthritis, right knee; M79.18 Myalgia, other site; M50.10 Cervical disc disorder with radiculopathy, unspecified cervical region; E78.00 Pure hypercholesterolemia, unspecified; Z79.82 Long term (current) use of aspirin; Z79.899 Other long term (current) drug therapy; Z88.0 Allergy status to penicillin; Z88.2 Allergy status to sulfonamides; Z98.890 Other specified postprocedural states
CPT/HCPCS: 20610; 62323; 77002; J1040; Q9965